=== PATIENT | male | born 1970 ===

== ENCOUNTER 2021-12-04 05:16 | Day surgery (SDC) | payer OTHER | END 2021-12-04 10:15 | disposition home or self-care (01) | LOC: CIR.AMB 05:16 | PROVIDERS: ATTEND Otolaryngology Otology & Neurotology | DX: H65.33 Chronic mucoid otitis media, bilateral (principal); D68.9 Coagulation defect, unspecified; Z20.822 Contact with and (suspected) exposure to COVID-19; Z71.6 Tobacco abuse counseling; F17.210 Nicotine dependence, cigarettes, uncomplicated; F12.90 Cannabis use, unspecified, uncomplicated ==